=== PATIENT | male | born 1955 | race Caucasian/White ===

== ENCOUNTER 2016-07-01 07:29 | Day surgery (SDC) | payer OTHER ==
[2016-06-28 08:40] LABS: HEMOGLOBIN 15.7 g/dL (13.6-17.8)
[2016-06-28 09:05] LABS: BUN (BLOOD UREA NITROGEN) 13 MG/DL (6-23); CALCIUM, SERUM 9.2 MG/DL (8.5-10.4); CHLORIDE, SERUM 105 MMOL/L (96-112); CO2 (CARBON DIOXIDE) 26 MMOL/L (24-34); CREATININE 0.96 MG/DL (0.70-1.30); GFR AFRICAN AMERICAN 98 ML/MIN (>=60); GFR NON AFRICAN AMERICAN 84 ML/MIN (>=60); GLUCOSE, SERUM 159 MG/DL (60-99); POTASSIUM, SERUM 4.1 MMOL/L (3.5-5.3); SODIUM, SERUM 138 MMOL/L (135-148)
--- NOTE | ~2016-07-01 | OP ---
Record Of [place] [id number] [place]. [address] NAME: JEANETH PEARSON : 51 STATUS : [facility]#: [id number] AGE: 60 ADM/REG DATE : 07/01/16 MR#: [id number] REPORT SERV DATE: 07/02/16 DICTATED BY: LAUREN BEATTY DATE: 07/02/16 REPORT STATUS : Draft TRANSCRIBED BY: MODL DATE: 07/02/16 DATE OF PROCEDURE: 07/01/2016 PREOPERATIVE DIAGNOSIS: Ventral hernia. POSTOPERATIVE DIAGNOSIS: Ventral hernia. PROCEDURE: Repair of ventral hernia. ATTENDING SURGEON: Lauren Beatty M.D. CHIEF RESIDENT: Dung Main MD. ANESTHETIC: General with local. IV FLUIDS: Approximately 1 L. ESTIMATED BLOOD LOSS: 5 mL. COMPLICATIONS: None. COUNTS: Correct. SPECIMEN: Hernia contents. DESCRIPTION OF PROCEDURE: The patient was brought to the operating room, placed supine on the operating table. Anesthetic was administered. Endotracheal intubation was achieved. The abdomen was prepped and draped in a standard sterile fashion. Time-out was held. A 4 cm incision was made in a vertical orientation just above the umbilicus. This was carried down to the level of the fascia with a combination of blunt dissection and electrocautery. The hernia and its contents were identified quickly and encircled. The herniated contents appeared to be a small amount of omentum that was clamped and the distal aspect excised. The ligation was conducted and the remaining tissue inverted back through the less than 1 cm defect. Next, we repaired the defects in the horizontal plane with interrupted 2-0 Nurolon. Adequate approximation was achieved. The wound was irrigated and closed at both the subcutaneous level with 3-0 Vicryl and the subcuticular level with 4-0 Monocryl and Dermabond applied. The patient tolerated the procedure well, was extubated, and transferred to the recovery area in stable condition. DICTATED BY: Dung Main MD ND/ROSALBA Lauren Beatty M.D. Record Of Operation [place] [id number] [place]. [address] NAME: JEANETH PEARSON : 51 STATUS : [facility] PAT#: [id number] AGE: 60 ADM/REG DATE : 07/01/16 MR#: [id number] REPORT SERV DATE: 07/02/16 DICTATED BY: LAUREN BEATTY DATE: 07/02/16 REPORT STATUS : Draft TRANSCRIBED BY: MODL DATE: 07/02/16 / [id number] CC: Edwardo Sellers M.D.
[~2016-07-01 07:29] MED LIST: *DENIES; ASAB PO; DSS PO; MULTIVIT/MIN PO; SYSTANE OPH; VITC500 PO
== END 2016-07-01 14:56 | disposition home or self-care (01) ==
LOC: SDC 07:29
PROVIDERS: Specialist
PROC: 0WQF0ZZ Repair Abdominal Wall, Open Approach (ICD-10-PCS; principal; 2016-07-01 09:30)
DX: K43.9 Ventral hernia without obstruction or gangrene (principal); I25.10 Atherosclerotic heart disease of native coronary artery without angina pectoris; I10 Essential (primary) hypertension; G47.33 Obstructive sleep apnea (adult) (pediatric); E11.9 Type 2 diabetes mellitus without complications; Z95.5 Presence of coronary angioplasty implant and graft
CPT/HCPCS: 80048; 82962; 85014; 85018; 88302; 88307; 88331; 93005; A9270-GY; J0690; J2250; J2405; J2710; J2795; J3010